=== PATIENT | female | born 1945 | race Caucasian/White ===

== ENCOUNTER 2017-09-04 07:44 | Day surgery (SDC) | payer OTHER ==
--- NOTE | 2017-08-28 20:09 | GHP ---
[f rep st] PREOP HISTORY AND PHYSICAL DATE OF ADMISSION: 09/04/2017 DATE OF OPERATION: Will be 09/04/2017. PREOPERATIVE DIAGNOSIS: Postmenopausal female with a thickened endometrium and endometrial cells on Pap smear. Surgery to be performed: Hysteroscopy, dilation and curettage. HISTORY OF PRESENT ILLNESS: The patient is a 72-year-old, 2, para 2-0-0 -2, who was followed by her primary CHARGE WEIGHER for hormone replacement therapy and routine care. She had a Pap smear performed on July 11, 2017, which was unsatisfactory due to quantity of squamous cells not being sufficient. However , endometrial cells were present, which may be associated with benign endometrial hormonal alteration or less commonly endometrial abnormalities. Patient was referred to me for evaluation of this Pap. Patient is postmenopausal and over age 65. Therefore, according to ASCCP guidelines, patient did not need a Pap smear after age 65, and she has never had a history of an abnormal Pap before in her life. However, because of the endometrial cells present on her Pap, I performed a repeat Pap and an endometrial curettage. The endometrial curettage revealed atypical squamous mucosal atrophy , and we performed a pelvic ultrasound. Pelvic ultrasound was concerning. It revealed a thickened endometrial canal, 1.6 cm, with multiple cystic areas within that endometrium and increased flow within the endometrial canal, which was highly suspicious for endometrial malignancy. Ovaries were normal. Because of this ultrasound finding and the endometrial cells on the Pap smear, we need to get a tissue diagnosis of her endometrium to evaluate for endometrial cancer. I gave the patient the option of an endometrial biopsy in the office with or without premedication with cytotec versus in-hospital evaluation with a hysteroscopy, D and C. patient is concerned that the procedure would be painful and wants to make sure that we get a good evaluation of her tissue. Therefore, she agreed to a hysteroscopy, D and C in the operating room. She was consented for the procedure. She understood the risks and benefits, the risks including bleeding, infection, damage to the uterus including possible risk of perforation, damage to other organs if perforation were to occur, and need for additional procedures for further diagnosis and/or treatment. She understood these risks and benefits, agreed to proceed. PAST GYNECOLOGICAL HISTORY: She has been postmenopausal since her mid 40s. She was on hormone replacement therapy for many years, but stopped approximately 6 years ago. She has had no postmenopausal bleeding, even now. She has no history of any abnormal Pap smears, and no history of other gynecological problems or sexually transmitted diseases. She has been for 48 years. She has a history of 2 spontaneous vaginal deliveries in 1971 and 1974, no complications, and she had a history of a bilateral tubal ligation in 1980. PAST MEDICAL HISTORY: Patient's medical problems include hypertension, hypercholesterolemia, and hypothyroid. PAST SURGICAL HISTORY: She has a past surgical history of: 2014, she had a parathyroidectomy. 2002, she had arthrocentesis of her right ankle. 1998, laparoscopic cholecystectomy. 1996, right ankle arthroscopy and debridement. 1980, her bilateral tubal ligation, and a hemorrhoidectomy. CURRENT MEDICATIONS: Include raloxifene 60 mg daily, isosorbide and hydrochlorothiazide 300 and 12.5 mg daily, atenolol 12.5 mg daily, Nature Thyroid 32.5 mg, vitamin D 50,000 international units a week, and vitamins. ALLERGIES: She has she is allergic to penicillin; it was a childhood reaction. She also is allergic to gluten and dairy, and avoids these in her diet. SOCIAL HISTORY: She denies smoking. Alcohol: 0-1 drinks a week. No marijuana. No other drugs or substances. No caffeine. She is retired. She exercises regularly by swimming and biking 3-5 times a week. 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 She has had regular mammograms and regular bone densities, and colonoscopies. FAMILY HISTORY: Her mother had osteoporosis and breast cancer, and at age 95. Her father had osteoarthritis, glaucoma, high blood pressure, and of a stroke at age 80. She has sisters who are living and are healthy. Her children are too. REVIEW OF SYSTEMS: Negative. Patient has no current symptoms for this problem or other problems. A 10-point review of systems was done and was negative. OBJECTIVE: VITAL SIGNS: Blood pressure is 126/64. Weight is 158. GENERAL: She is a well-developed, elderly female in no acute distress. LUNGS: Clear to auscultation bilaterally. HEART: Regular rate and rhythm. No murmurs. ABDOMEN: Soft, nontender, nondistended. Normal bowel sounds. PELVIC: Atrophic genitalia. No lesions or masses. Normal parous cervix, grossly normal. Uterus is anteverted and mobile, nontender. No masses are palpated. ASSESSMENT AND PLAN: 72-year-old, 2, para 2-0-0-2, with endometrial cells present on a Pap smear. Ultrasound highly suspicious for endometrial carcinoma with a thickened endometrium, increased hypervascularity. Patient is consented for hysteroscopy, D and C today, to obtain a tissue sample for definitive diagnosis and treatment. /[id number]/MODL MTDD
[2017-09-04] MEDS ORDERED: LR 1,000 ML IV ONE (08:32)
[2017-09-04] MEDS ORDERED: MIDAZOLAM 2 MG/2 ML VIAL IVP ONE (08:43)
--- NOTE | 2017-09-04 08:45 | PDANEPAE ---
ANE History of Present Illness endometrial cells on pap smear ANE Past Medical History - Cardiovascular History Hx Hypertension: Yes Hx Arrhythmias: No Hx Chest Pain: No Hx Coronary Artery / Peripheral Vascular Disease: No Hx CHF / Valvular Disease: No Hx Palpitations: No - Pulmonary History Hx COPD: No Hx Asthma/Reactive Airway Disease: No Hx Recent Upper Respiratory Infection: No Hx Oxygen in Use at Home: No Hx Sleep Apnea: No Sleep Apnea Screening Result - Last Documented: Negative - Neurologic History Hx Cerebrovascular Accident: No Hx Seizures: No Hx Dementia: No - Endocrine History Hx Diabetes: No Hypothyroid: Yes Hyperthyroid: No - Renal History Hx Renal Disorders: No - Liver History Hx Hepatic Disorders: No - Neurological & Psychiatric Hx Hx Neurological and Psychiatric Disorders: No - Cancer History Hx Cancer: No - Congenital Disorder History Hx Congenital Disorders: No - GI History GERD: no Hx Gastrointestinal Disorders: No - Other Health History Other Health History: endometrial thickening - Chronic Pain History Chronic Pain: No - Surgical History Prior Surgeries: B Salpingectomy. foot sx. lap deidra. parathyroidectomy 2014 ANE Review of Systems Review of Systems: - Exercise capacity METS (RN): 5 METS ANE Patient History - Allergies Allergies/Adverse Reactions: Penicillins Allergy (Verified 08/28/17 19:31) - Home Medications Home Medications: [place] Thyroid 30 DAILY AT 6AM 08/29/17 [Last Taken Unknown] Atenolol 12.5 HS 08/29/17 [Last Taken Unknown] Irbesartan-Hctz 300-12.5 mg Tb DAILY AT 6AM 08/29/17 [Last Taken Unknown] Raloxifene HCl HS 08/29/17 [Last Taken Unknown] Vitamin D3 08/29/17 [Last Taken Unknown] - NPO status NPO Since - Liquids (Date): 09/03/17 NPO Since - Liquids (Time): 23:00 NPO Since - Solids (Date): 09/03/17 NPO Since - Solids (Time): 19:00 - Anes Hx Anes Hx: no prior problems - Smoking Hx Smoking Status: Never smoked - Family Anes Hx Family Anes Hx: none Family Hx Anesthesia Complications: none ANE Labs/Vital Signs - Vital Signs Blood Pressure: 143/86 Heart Rate: 74 Respiratory Rate: 14 O2 Sat (%): 96 Height: 160.02 cm Weight: 70.307 kg ANE Physical Exam - Airway Neck exam: FROM Mallampati Score: Class 2 Mouth exam: normal dental/mouth exam - Pulmonary Pulmonary: no respiratory distress, no rales or rhonchi, clear to auscultation - Cardiovascular Cardiovascular: regular rate and rhythym, no murmur, rub, or gallop - ASA Status ASA Status: II ANE Anesthesia Plan Anesthesia Plan: GA w LMA
[2017-09-04] MEDS ORDERED: NALOXONE HCL 0.4 MG/ML INJ IVP PRN (08:46)
[2017-09-04] MEDS ORDERED: LR 500 ML IV PRN (08:46)
[2017-09-04] MEDS ORDERED: fentaNYL 100 MCG/2 ML INJ IVP PRN (08:46)
[2017-09-04] MEDS ORDERED: OXYCODONE/APAP 5/325 TAB PO PRN (08:46)
[2017-09-04] MEDS ORDERED: ALBUTEROL 3 ML DEYVIAL IH PRN (08:46)
[2017-09-04] MEDS ORDERED: HYDROCODONE/APAP 5/325 TAB PO PRN ×2 (08:46→10:00)
[2017-09-04] MEDS ORDERED: ONDANSETRON 4 MG/2 ML VIAL IVP PRN (08:46)
[2017-09-04] MEDS ORDERED: MEPERIDINE 25 MG/ML SYR IVP PRN (08:46)
[2017-09-04] MEDS ORDERED: PROMETHAZINE HCL 25 MG/ML INJ IVP PRN (08:46)
[2017-09-04] MEDS ORDERED: ACETAMINOPHEN 500 MG TAB PO PRN (08:46)
[2017-09-04] MEDS ORDERED: PROPOFOL 200 MG/20 ML VIAL ONE (08:51)
[2017-09-04] MEDS ORDERED: fentaNYL 100 MCG/2 ML INJ ONE ×2 (08:51→09:45)
[2017-09-04] MEDS ORDERED: DEXAMETHASONE 4 MG/ML VIAL ONE (08:53)
[2017-09-04] MEDS ORDERED: ONDANSETRON 4 MG/2 ML VIAL ONE (08:54)
[2017-09-04] MEDS ORDERED: LIDOCAINE 2% 5 ML SDV ONE (08:54)
[2017-09-04] MEDS ORDERED: KETOROLAC 30 MG/1 ML SDV ONE (09:44)
[2017-09-04] MEDS ORDERED: IBUPROFEN 600 MG TAB PO PRN (09:59)
--- NOTE | 2017-09-04 10:02 | POSTANESTH ---
Post Anesthetic Evaluation Cardiovascular Status: Normal, Stable Respiratory Status: Normal, Stable Level of Consciousness/Mental Status: Can Participate in Eval Pain Control: Adequate, Prn Tx Ordered Nausea/Vomiting Control: Adequate, Prn Tx Ordered Complications Possibly Related to Anesthesia: None Noted
--- NOTE | 2017-09-04 10:03 | POSTOPPROG ---
Post Op Note Date of Operation: 09/04/17 Surgeon: Denise Sifuentes Contracts Analyst: Dr. Sharan Lim Anesthesia: GET(General Endotracheal) Pre-op Diagnosis: thickened endometrium in post menopausal female Post-op Diagnosis: endometrial polyp Procedure: Hysteroscopy dilation and currettage, polypectomy with morcellator Findings: large endometrial polyp Inf/Abcess present in the surg proc area at time of surgery?: No Depth: Organ Space EBL: Minimal Total fluids administered: 1200 Specimen(s): endometrial polyp and endometrial currettings
[2017-09-04] MEDS ORDERED: SILVER NITRATE APPLICATOR 1 APPL TP ONE (10:20)
[2017-09-04] MEDS ORDERED: HYDROCODONE/APAP 5/325 TAB ONE (10:23)
[2017-09-04] MEDS ORDERED: IBUPROFEN 200 MG TAB PO ONE (10:23)
[2017-09-04 10:31] VITALS: RESP 14
--- NOTE | 2017-09-04 10:34 | GOP ---
[f rep st] OPERATIVE REPORT DATE OF OPERATION: 09/04/2017 SURGEON: Denise Sifuentes MD ANESTHESIA: General anesthesia. ANESTHESIOLOGIST: Dr. Sharan Magana. PREOPERATIVE DIAGNOSIS: Thickened endometrium in a postmenopausal female. POSTOPERATIVE DIAGNOSIS: Endometrial polyp. PROCEDURE PERFORMED: Hysteroscopy, dilation, and curettage, polypectomy with morcellator. FINDINGS: INDICATIONS: The patient is a 72-year-old 2, para 2-0-0-2, who was followed by her primary g yn for hormone replacement therapy and routine care and had a Pap smear performed on July 11, 2017 , which was unsatisfactory due to quantity of squamous cells not sufficient. However, endometrial ce lls were present on that Pap smear. The patient was referred to me for evaluation. She is postmenop ausal and over 65; therefore, according to ASCCP guidelines did not need a Pap. However, because she had an abnormal Pap and the endometrial cells present, we did a workup. Endometrial curettage revea led atypical squamous and mucosal atrophy. Pelvic ultrasound was concerning for a thickened endometr ial canal 1.6 cm with multiple cystic areas within that endometrium and increased blood flow highly s uspicious for endometrial malignancy. Therefore, we needed a tissue sample for diagnosis. I offered the patient an in office endometrial biopsy versus procedural hysteroscopy and D and C. Patient wis hed to have the procedure performed in the hospital for better diagnosis and her comfort. The patien t was consented for the procedure. She understood the risks and benefits, the risks including bleedi ng, infection, damage to the uterus including possible risk of perforation, damage to other organs if perforation were to occur, risk of needing additional procedures, and patient understood these risks and benefits, agreed to proceed. DESCRIPTION OF PROCEDURE: Patient was taken to the operating room where she was placed under general anesthesia without difficulty. She was prepped and draped in the dorsal lithotomy position. After a WHO time-out was performed, an open-sided speculum was placed in the vagina, and a single-tooth ten aculum was used to grasp the anterior lip of the cervix. The uterus sounded to 8 cm. The cervix was progressively dilated with Dunne dilators to a #6.5. The TruClear hysteroscope was then gently adva nced from the cervix to the fundus, and visualization of the endometrium revealed a large endometrial polyp obstructing the entire endometrial canal. The polyp appeared relatively benign and isolated t o 1 area. I was able to manipulate the scope around the polyp to visualize the tubal ostia on both s ides, and it seemed to be attached to the posterior wall of the uterus. The morcellator was placed t hrough the operative channel of the hysteroscope. The window lock was performed, and polypectomy was performed under direct visualization until the polyp was completely removed and the base was complet satya clear to the wall of the endometrium. There were no further abnormalities seen. The endometrium was then clear. The hysteroscope was removed. Sharp curettage was performed in a clockwise fashion until a gritty te xture was palpated throughout the entire endometrium. The curettage as well as the polypectomy speci men will be sent together for diagnosis. The tenaculum was removed. Small areas of bleeding were ca uterized with silver nitrate. Speculum was removed. The patient tolerated the procedure well. Spon ge, lap, needle, and instrument counts were correct x2. The patient went to the recovery room in goo d condition. Estimated blood loss for the procedure was less than 20 cc. IV fluids were 1200 cc. Fluid deficit wa s 20 cc. Pathologic specimens will be endometrial polyp and endometrial curettings. /[id number]/MODL
[2017-09-04 10:38] VITALS: TEMP 97.3
[2017-09-04 10:52] VITALS: BP 125/80; PULSE 55; O2SAT 95
== END 2017-09-04 11:21 | disposition home or self-care (01) ==
LOC: FSGY 07:44
PROVIDERS: ATTEND Obstetrics & Gynecology
PROC: 0UDB8ZX Extraction of Endometrium, Via Natural or Artificial Opening Endoscopic, Diagnostic (ICD-10-PCS; principal; 2017-09-04 09:00)
DX: N84.0 Polyp of corpus uteri (principal); Z80.3 Family history of malignant neoplasm of breast
CPT/HCPCS: 58558; C1782; J1100; J1885; J2250; J2405; J2704; J3010